=== PATIENT | male | born 1955 | race Two or more races ===

== ENCOUNTER 2022-01-02 14:45 | Inpatient (IN) | payer MEDICARE, OTHER ==
[~2022-01-02] VITALS: Ht 162.6 cm; Wt 64.9 kg
[2022-01-02 14:10] VITALS: BP 119/70
--- NOTE | 2022-01-02 14:30 | NUR ---
Patient admitted to med surg. Alert x4willi to make needs known. Patient reports having bright red blood in the toilet last night around 11pm, he then went to [facility] for evaluation. Patient had another episode while at hospital and noted blood to leak out of rectum involuntarily. Patient does not have any episodes now, his gait is steady. He is a good historian. Family is at bedside.
[2022-01-02] MEDS ORDERED: ZOLPIDEM 5 MG TABLET PO PRN (15:00)
[2022-01-02] MEDS ORDERED: ONDANSETRON 4 MG/2 ML VIAL IV PRN (15:00)
[2022-01-02] MEDS ORDERED: REMEDY ESSENTIAL ZINC PASTE 113 GM TP PRN (15:00)
[2022-01-02] MEDS ORDERED: MAGNESIUM HYDROXIDE 30 ML LIQUID UDC PO PRN (15:00)
[2022-01-02] MEDS ORDERED: ACETAMINOPHEN 325 MG TABLET PO PRN (15:00)
[2022-01-02 15:16] LABS: HEMATOCRIT 33.6 % (36.7-47.1); MEAN CORPUSCULAR HEMOGLOBIN 30.1 uug (23.8-33.4); MEAN CORPUSCULAR VOLUME 89.2 fL (73.0-96.2); PLATELET COUNT (AUTO) 236 K/uL (152-348)
[2022-01-02] MEDS ORDERED: NITR0.4T48 SL (15:43)
[2022-01-02] MEDS ORDERED: DIGO125T5 PO (15:43)
[2022-01-02] MEDS ORDERED: TAMS-3 PO (15:43)
[2022-01-02] MEDS ORDERED: ERGO500040 PO (15:43)
[2022-01-02] MEDS ORDERED: OMEP40CA21 PO (15:43)
[2022-01-02] MEDS ORDERED: FLUT1BLS IH (15:43)
[2022-01-02] MEDS ORDERED: FURO20TA4 PO (15:43)
[2022-01-02] MEDS ORDERED: MECL-225 PO (15:43)
[2022-01-02] MEDS ORDERED: ATOR40TA PO (15:43)
[2022-01-02] MEDS ORDERED: FINA5TAB11 PO (15:43)
[2022-01-02] MEDS ORDERED: ASPI81TA31 PO (15:43)
[2022-01-02] MEDS ORDERED: CARV3.12 PO (15:43)
[2022-01-02] MEDS ORDERED: MECLIZINE HCL 12.5 MG TABLET PO PRN (16:00)
[2022-01-02] MEDS: IV NS 1000 ML 1,000 ML IV PRN (16:17)
[2022-01-02] MEDS ORDERED: ICOS1CAP PO (16:40)
[2022-01-02] MEDS ORDERED: SERT50TA PO (16:40)
[2022-01-02] MEDS: OMEGA-3 FATTY ACIDS/FISH OIL CAPSULE PO SCH (17:23)
[2022-01-02] MEDS: CARVEDILOL 3.125 MG TABLET PO SCH (17:24)
[2022-01-02 20:06] VITALS: BP 118/63
[2022-01-02] MEDS: ATORVASTATIN 40 MG TABLET PO SCH (21:05)
[2022-01-02] MEDS: TAMSULOSIN HCL 0.4 MG CAP.SR.24H PO SCH (21:05)
[2022-01-02] MEDS: PANTOPRAZOLE SODIUM 40 MG VIAL IV SCH (21:05)
[2022-01-03 04:40] VITALS: BP 102/54
--- NOTE | 2022-01-03 05:16 | NUR ---
Patient is alert and oriented x4. Slept well this shift. In no acute distress, No further rectal bleeding noted. patient denies any SOB, Chest pain. NO ABD pain, ABD is soft and non distended. Patient able to ambulate to toilet to void, no BM. All needs attended, call light within reach.
[2022-01-03 07:30] LABS: HEMATOCRIT 30.1 % (36.7-47.1); MEAN CORPUSCULAR HEMOGLOBIN 30.5 uug (23.8-33.4); PLATELET COUNT (AUTO) 201 K/uL (152-348)
[2022-01-03 07:49] LABS: ALANINE AMINOTRANSFERASE 19 U/L (16-63); ALKALINE PHOSPHATASE 41 U/L (50-136); ASPARTATE AMINOTRANSFERASE 15 U/L (15-37); BILIRUBIN,TOTAL 0.4 mg/dL (0.2-1.0); CARBON DIOXIDE 26 mmol/L (21-32); CHLORIDE 107 mmol/L (98-107); CREATININE 0.8 mg/dL (0.6-1.3); DIGOXIN < 0.2 ng/mL (0.9-2.0); GLUCOSE 121 mg/dL (74-106); MAGNESIUM 1.7 mg/dL (1.8-2.4); PHOSPHOROUS 3.3 mg/dL (2.5-4.9); POTASSIUM 3.5 mmol/L (3.5-5.1); TOTAL PROTEIN, SERUM 5.9 g/dL (6.4-8.2); UREA NITROGEN, BLOOD 9 mg/dL (7-18)
[2022-01-03] MEDS: OMEGA-3 FATTY ACIDS/FISH OIL CAPSULE PO SCH ×3 (09:07→18:16)
[2022-01-03] MEDS: TAMSULOSIN HCL 0.4 MG CAP.SR.24H PO SCH ×2 (09:07→21:11)
[2022-01-03] MEDS: FUROSEMIDE 20 MG TABLET PO SCH (09:08)
[2022-01-03] MEDS: SERTRALINE HCL 50 MG TABLET PO SCH (09:08)
[2022-01-03] MEDS: FINASTERIDE 5 MG TABLET PO SCH (09:08)
[2022-01-03] MEDS: CARVEDILOL 3.125 MG TABLET PO SCH ×2 (09:08→18:16)
[2022-01-03] MEDS: PANTOPRAZOLE SODIUM 40 MG VIAL IV SCH ×2 (09:08→21:11)
[2022-01-03] MEDS: FLUTICASONE/VILANTEROL 1 EACH BLST.W.DEV IH SCH (09:16)
[2022-01-03] MEDS ORDERED: MAGNESIUM OXIDE 400 MG TABLET PO ONE (10:30)
[2022-01-03] MEDS: DIGOXIN 125 MCG TABLET PO SCH (10:58)
[2022-01-03] MEDS ORDERED: GOLYTELY 4000 ML BOTTLE PO ONE (11:00)
[2022-01-03 11:39] VITALS: BP 116/64
[2022-01-03 14:37] LABS: HEMATOCRIT 29.9 % (36.7-47.1)
[2022-01-03 16:00] VITALS: BP 108/68
[2022-01-03 19:40] VITALS: BP 107/57
[2022-01-03] MEDS: ATORVASTATIN 40 MG TABLET PO SCH (21:11)
--- NOTE | 2022-01-03 21:25 | NUR ---
Patient AALox4.On RA.No s/s of distress noted.Denies pain at this time. IV patent and intact on right wrist with IVF running well.Ambulates to bathroom with episodes of rectal bleeding bright red.siva Frey made aware.Patient scheduled for colonoscopy tomorrow.Encouraged to consume golytely.Verbalized understanding.Patient in NPO.Will continue to monitor.
[2022-01-03] MEDS: IV NS 1000 ML 1,000 ML IV PRN (23:43)
[2022-01-04 04:00] VITALS: BP 103/58
--- NOTE | 2022-01-04 06:16 | NUR ---
Patient slept intermittently .No episodes of rectal bleeding at this time.NPO except meds. Reinforced teaching about taking Golytely.All needs anticipated and met accordingly. Vss.Will endorse to oncoming shift.
[2022-01-04 08:14] LABS: *OCCULT BLOOD STOOL POSITIVE (NEGATIVE)
[2022-01-04 08:27] VITALS: BP 133/74
[2022-01-04] MEDS: DIGOXIN 125 MCG TABLET PO SCH (08:30)
[2022-01-04] MEDS: PANTOPRAZOLE SODIUM 40 MG VIAL IV SCH ×2 (08:30→20:38)
[2022-01-04] MEDS: FINASTERIDE 5 MG TABLET PO SCH (08:30)
[2022-01-04] MEDS: FLUTICASONE/VILANTEROL 1 EACH BLST.W.DEV IH SCH (08:31)
[2022-01-04] MEDS: SERTRALINE HCL 50 MG TABLET PO SCH (08:31)
[2022-01-04] MEDS: OMEGA-3 FATTY ACIDS/FISH OIL CAPSULE PO SCH ×3 (08:31→17:41)
[2022-01-04] MEDS: FUROSEMIDE 20 MG TABLET PO SCH (08:31)
[2022-01-04] MEDS: TAMSULOSIN HCL 0.4 MG CAP.SR.24H PO SCH ×2 (08:31→20:38)
[2022-01-04] MEDS: CARVEDILOL 3.125 MG TABLET PO SCH ×2 (08:31→17:41)
--- NOTE | 2022-01-04 09:43 | NUR ---
received awake in bed, watching tv, oriented x4, comfortable on room air, no distress noted. iv fluids infusing as ordered no ss of infiltration/phlebitis. assisted to bathroom denies bleeding at this time. encouraged to consume golytely explained what it was for, stated understanding. cont npo except meds. kept comfortable. call light in reach and functional.
[2022-01-04 11:36] VITALS: BP 122/74
[2022-01-04] MEDS ORDERED: SACU1TAB PO (11:44)
--- NOTE | 2022-01-04 11:45 | NUR ---
family brought in entresto medication, endorsed to rx.
[2022-01-04] MEDS: IV NS 1000 ML 1,000 ML IV PRN (12:40)
[2022-01-04 13:38] LABS: HEMATOCRIT 25.2 % (36.7-47.1)
--- NOTE | 2022-01-04 14:33 | NUR ---
picked up by er nurses for scheduled colonoscopy. report given to guillermo saldaña. at bedside aware.
[2022-01-04] MEDS ORDERED: LIDOCAINE-MPF 2% 5 ML VIAL IJ ONE (16:00)
[2022-01-04] MEDS ORDERED: PROPOFOL 200 MG/20 ML BOTTLE IV ONE (16:00)
[2022-01-04 16:22] VITALS: BP 121/72
--- NOTE | 2022-01-04 16:24 | NUR ---
came back from surgery awake, denies pain, feels bloated. at bedside. no distress noted. vs noted.
[2022-01-04] MEDS: ENTRESTO PO SCH (18:29)
[2022-01-04] MEDS ORDERED: MISCELLANEOUS MED XX PRN (18:30)
--- NOTE | 2022-01-04 18:31 | NUR ---
no bleeding noted. comfortable with family at bedside. denies pain. needs attended.
[2022-01-04 20:00] VITALS: BP 116/61
--- NOTE | 2022-01-04 20:00 | NUR ---
Received patient in bed awake and alert x4. Verbal. 98% on room air. No acute respiratory distress. VSS. All medications given with no ASE. NS infusing @ 75cc and IV patent. Following clear liquid diet. Denied pain or discomfort. Sleeping in bed comfortable.
[2022-01-04] MEDS: ATORVASTATIN 40 MG TABLET PO SCH (20:38)
[2022-01-04] MEDS: HYDROCORTISONE RECTAL SUPP 25 MG EACH RC SCH (20:39)
[2022-01-05 04:00] VITALS: BP 113/58
[2022-01-05] MEDS: IV NS 1000 ML 1,000 ML IV PRN ×2 (06:38→20:13)
[2022-01-05] MEDS: SERTRALINE HCL 50 MG TABLET PO SCH (08:04)
[2022-01-05] MEDS: OMEGA-3 FATTY ACIDS/FISH OIL CAPSULE PO SCH ×3 (08:04→16:15)
[2022-01-05] MEDS: FINASTERIDE 5 MG TABLET PO SCH (08:04)
[2022-01-05] MEDS: CARVEDILOL 3.125 MG TABLET PO SCH ×2 (08:04→17:12)
[2022-01-05] MEDS: TAMSULOSIN HCL 0.4 MG CAP.SR.24H PO SCH ×2 (08:04→20:21)
[2022-01-05] MEDS: FLUTICASONE/VILANTEROL 1 EACH BLST.W.DEV IH SCH (08:04)
[2022-01-05] MEDS: DIGOXIN 125 MCG TABLET PO SCH (08:04)
[2022-01-05] MEDS: ENTRESTO PO SCH ×2 (08:04→16:16)
[2022-01-05] MEDS: FUROSEMIDE 20 MG TABLET PO SCH (08:04)
[2022-01-05] MEDS: PANTOPRAZOLE SODIUM 40 MG VIAL IV SCH ×2 (08:05→20:21)
[2022-01-05] MEDS: HYDROCORTISONE RECTAL SUPP 25 MG EACH RC SCH ×3 (08:19→21:00)
[2022-01-05 12:05] VITALS: BP 105/63
[2022-01-05 12:36] LABS: HEMATOCRIT 25.3 % (36.7-47.1)
[2022-01-05 14:04] LABS: HEMATOCRIT 26.4 % (36.7-47.1)
[2022-01-05 16:41] VITALS: BP 113/66
--- NOTE | 2022-01-05 19:00 | NUR ---
Received patient on bed, alert, no shortness of breath, no complaint of pain, with ongoing IVF Normal saline at 75cc/hr. Safety precautions provided, call light placed within reach.
[2022-01-05 20:00] VITALS: BP 103/55
[2022-01-05] MEDS: ATORVASTATIN 40 MG TABLET PO SCH (20:21)
--- NOTE | 2022-01-05 20:34 | NUR ---
Refused to received Hydrocortisone rectal suppository for hemorroids.
[2022-01-06 04:00] VITALS: BP 111/41
[2022-01-06 06:13] LABS: HEMATOCRIT 24.5 % (36.7-47.1); MEAN CORPUSCULAR HEMOGLOBIN 30.5 uug (23.8-33.4); MEAN CORPUSCULAR VOLUME 88.7 fL (73.0-96.2); PLATELET COUNT (AUTO) 184 K/uL (152-348)
--- NOTE | 2022-01-06 06:43 | NUR ---
Slept well, no complaint of pain, no shortness of breath, vitally stable.
--- NOTE | 2022-01-06 08:00 | NUR ---
AWAKE ALERT AND ORIENTED X3, DENIES PAIN NO SS OF BLEEDING CONTINUE WITH IVF 75 MLS/HR
[2022-01-06] MEDS: FLUTICASONE/VILANTEROL 1 EACH BLST.W.DEV IH SCH (08:28)
[2022-01-06] MEDS: ENTRESTO PO SCH (08:29)
[2022-01-06] MEDS: CARVEDILOL 3.125 MG TABLET PO SCH (08:30)
[2022-01-06] MEDS: SERTRALINE HCL 50 MG TABLET PO SCH (08:30)
[2022-01-06] MEDS: OMEGA-3 FATTY ACIDS/FISH OIL CAPSULE PO SCH ×2 (08:30→13:09)
[2022-01-06] MEDS: FINASTERIDE 5 MG TABLET PO SCH (08:30)
[2022-01-06] MEDS: TAMSULOSIN HCL 0.4 MG CAP.SR.24H PO SCH (08:30)
[2022-01-06] MEDS: PANTOPRAZOLE SODIUM 40 MG VIAL IV SCH (08:30)
[2022-01-06] MEDS: DIGOXIN 125 MCG TABLET PO SCH (08:31)
[2022-01-06] MEDS: FUROSEMIDE 20 MG TABLET PO SCH (08:31)
[2022-01-06] MEDS: HYDROCORTISONE RECTAL SUPP 25 MG EACH RC SCH (08:37)
[2022-01-06] MEDS: IV NS 1000 ML 1,000 ML IV PRN (09:33)
--- NOTE | 2022-01-06 10:30 | NUR ---
SEEN BY HOSPITALIST FOR FOLLOW-UP DISCLOSED PLAN OF CARE. PAL DC HOME IF OK WITH GI
--- NOTE | 2022-01-06 11:45 | NUR ---
HOSPITALIST CALLED BACK [facility] AWARE OF PT BEING DISCHARGE, SPOKE WITH PATIENT.
[2022-01-06 12:00] VITALS: BP 112/68
--- NOTE | 2022-01-06 12:58 | NUR ---
DISCHARGE MEDICATION AND FOLLOW-UP INSTRUCTION GIVEN TO PATIENT.
--- NOTE | 2022-01-06 14:00 | NUR ---
discharged home stable accompanied by and son with ijstrutction to see primary doctor in 2-3 days
[2022-01-06] MEDS ORDERED: PANTOPRAZOLE SODIUM 40 MG TABLET.DR PO SCH (17:00)
[2022-01-07] MEDS ORDERED: ERGOCALCIFEROL 50,000 UNIT CAPSULE PO SCH (09:00)
== END 2022-01-06 14:00 | disposition home or self-care (01) | DRG 386 ==
LOC: MEDSURG3 14:45
PROVIDERS: ADMIT Nurse Practitioner Acute Care; ATTEND Registered Nurse
PROC: 0W3P8ZZ Control Bleeding in Gastrointestinal Tract, Via Natural or Artificial Opening Endoscopic (ICD-10-PCS; principal; 2022-01-04)
PROC: 0DBP8ZX Excision of Rectum, Via Natural or Artificial Opening Endoscopic, Diagnostic (ICD-10-PCS; 2022-01-04)
DX: K51.211 Ulcerative (chronic) proctitis with rectal bleeding (principal); D62 Acute posthemorrhagic anemia; I48.91 Unspecified atrial fibrillation; Z95.810 Presence of automatic (implantable) cardiac defibrillator; E78.5 Hyperlipidemia, unspecified; F17.210 Nicotine dependence, cigarettes, uncomplicated; G89.29 Other chronic pain; I25.10 Atherosclerotic heart disease of native coronary artery without angina pectoris; K64.8 Other hemorrhoids; M19.90 Unspecified osteoarthritis, unspecified site; Z95.5 Presence of coronary angioplasty implant and graft; J44.9 Chronic obstructive pulmonary disease, unspecified; I50.9 Heart failure, unspecified; I11.0 Hypertensive heart disease with heart failure; R53.1 Weakness; K62.89 Other specified diseases of anus and rectum
CPT/HCPCS: 36415; 83605; 83735; 84100; 85018; 85025; A4663; C9113; G0378; J3490; J7040